=== PATIENT | female | born 1975 | race Caucasian/White ===

== ENCOUNTER 2017-01-25 19:31 | Emergency (ER) | payer BC, OTHER ==
[~2017-01-25] VITALS: Ht 172.7 cm; Wt 65.8 kg
[2017-01-25] MEDS ORDERED: PROZAC (19:56)
[2017-01-25] MEDS ORDERED: TRAZADONE (19:56)
[2017-01-25] MEDS ORDERED: LAMICTAL (19:56)
[2017-01-25] MEDS ORDERED: LORAZEPAM 0.5 MG TABLET PO ONE (20:45)
[2017-01-25] MEDS ORDERED: LORAZEPAM 1 MG TABLET ONE (20:48)
[2017-01-25 21:54] VITALS: BP 112/65
--- NOTE | 2017-01-25 21:54 | NUR ---
Patient discharged to home in stable conditon. Written and verbal after care instructions given. Patient verbalizes understanding of instructions.
== END 2017-01-25 21:54 | disposition home or self-care (01) ==
LOC: ER 19:33
DX: F13.20 Sedative, hypnotic or anxiolytic dependence, uncomplicated (principal); R11.0 Nausea; F31.9 Bipolar disorder, unspecified; Z86.19 Personal history of other infectious and parasitic diseases
CPT/HCPCS: A4663

== ENCOUNTER 2017-12-03 16:21 | Emergency (ER) | payer OTHER ==
[~2017-12-03] VITALS: Ht 172.7 cm; Wt 65.8 kg
[~2017-12-03 16:21] MED LIST: LAMICTAL; PROZAC; TRAZADONE
--- NOTE | 2017-12-03 17:55 | NUR ---
Pt is sitting in bed, awaiting to be seen by MD.
--- NOTE | 2017-12-03 19:13 | NUR ---
REPORT TAKEN FROM DAY SHIFT RN. ASSUMING PT CARE AT THIS TIME.
--- NOTE | 2017-12-03 19:14 | NUR ---
KANWAL LAGUNA AT BEDSIDE FOR MSE.
--- NOTE | 2017-12-03 19:23 | NUR ---
Patient discharged to home in stable conditon. Written and verbal after care instructions given. Patient verbalizes understanding of instructions. Pt ambulated from ER w/ steady gait.
[2017-12-03 19:35] VITALS: BP 110/80
== END 2017-12-03 19:36 | disposition home or self-care (01) ==
LOC: ER 16:21
DX: F31.9 Bipolar disorder, unspecified (principal); F41.9 Anxiety disorder, unspecified; F17.210 Nicotine dependence, cigarettes, uncomplicated; Z79.891 Long term (current) use of opiate analgesic; Z79.899 Other long term (current) drug therapy
CPT/HCPCS: A4663

== ENCOUNTER 2018-06-03 23:32 | Emergency (ER) | payer OTHER ==
[~2018-06-03] VITALS: Ht 172.7 cm; Wt 63.5 kg
[~2018-06-03 23:32] MED LIST changes: -LAMICTAL
--- NOTE | 2018-06-03 23:48 | NUR ---
MD ABEBE AT BEDSIDE FOR MSE
--- NOTE | 2018-06-04 01:25 | NUR ---
Patient discharged to home in stable conditon. Written and verbal after care instructions given. Patient verbalizes understanding of instructions. Patient able to ambulate unassisted with a steady gait. Patient left with all personal belongings.
[2018-06-04 02:12] VITALS: BP 122/82
== END 2018-06-04 01:25 | disposition home or self-care (01) ==
LOC: ER 23:35
DX: L03.011 Cellulitis of right finger (principal); F17.200 Nicotine dependence, unspecified, uncomplicated
CPT/HCPCS: 73120; 73590; 73600; A4663